=== PATIENT | male | born 1985 | race Hispanic/Latino ===

== ENCOUNTER → 2017-08-26 | Day surgery (SDC) | payer SELFPAY ==
[~2017-08-26] MED LIST: Bupivacaine 0.25% HCL 30 ML VIAL ONE; Dexamethasone 20 MG/5 ML VIAL ONE; Fentanyl 100 MCG/2 ML VIAL ONE; Glycopyrrolate 0.2 MG/ML 5 ML SYRINGE ONE; HYDROcodone/Acetaminophen 5/325 mg Tablet ONE; ISOVUE-370 76%-LOCM 1 ML ONE; Iopamidol 370 76% 50 ML VIAL FS ONE; Ketorolac Tromethamine 30 MG/ML VIAL IVP SCH; Ketorolac Tromethamine 30 MG/ML VIAL ONE; Lidocaine 1% PF 5 ML VIAL ONE; Midazolam HCl 2 mg/2 ml Vial ONE; Ondansetron HCl/PF 4 MG/2 ML Vial ONE; PHENYLEPHRINE-NS 100 MCG/ML 10 ML SYRINGE ONE; Piperacillin/Tazobactam 3.375 GM, Admixture Fee 1 EACH in Sodium Chloride 0.9% 100 ML IVPB SCH; Propofol 200 MG/20 ML VIAL ONE; Succinylcholine Chloride 20 MG/ML 10 ml SYRINGE FS ONE
[2017-08-26 08:50] LABS: #Lymphocytes 0.7 thou/uL (1.20-3.40); #Monocytes 0.8 thou/uL (0.11-0.59); #Neutrophils 15.7 thou/uL (1.40-6.50); %Basophils 0.2 % (0.0-1.0); %Eosinophils 0.1 % (0.0-10.0); %Monocytes 4.4 % (0.0-10.0); %Neutrophils 91.4 % (42.0-75.0); Hemoglobin 15.3 g/dL (14.0-18.0); Mean Corpuscular HGB CONC 33.2 g/dL (32.0-36.0); Mean Corpuscular Hemoglobin 30.4 pg (27.0-31.0); Mean Corpuscular Volume 91.5 fl (80.0-94.0); Mean Platelet Volume 8.1 fL (7.4-10.4); Platelet Count 250 thou/uL (130-400); RBC Distribution Width 13.1 % (11.5-14.5); Red Blood Cell (RBC) Count 5.04 mill/uL (4.70-6.10); White Blood Cell (WBC) Count 17.2 thou/uL (4.8-10.8)
[2017-08-26 09:05] LABS: ALT (SGPT) 93 U/L (8-55); AST (SGOT) 28 U/L (5-34); Albumin 4.2 g/dL (3.5-5.0); Alkaline Phosphatase 102 U/L (40-150); Anion Gap 12 mmol/L (10-20); BUN (Urea Nitrogen) 9 mg/dL (8.9-20.6); Bilirubin, Total 0.6 mg/dL (0.2-1.2); Calc. Creatinine Clearance 0 mL/min (70-130); Calcium 9.2 mg/dL (7.8-10.44); Carbon Dioxide 24 mmol/L (22-29); Chloride 102 mmol/L (98-107); Estimated GFR-MDRD Greater than 90; Globulin 3.6 g/dL (2.4-3.5); Glucose 138 mg/dL (70-105); Lipase 9 U/L (8-78); Potassium 4.4 mmol/L (3.5-5.1); Protein, Total 7.8 g/dL (6.0-8.3); Sodium 134 mmol/L (136-145)
[2017-08-26 10:52] LABS: Bilirubin Negative (Negative); Blood, Urine Negative (Negative); Clarity CLEAR (Clear); Glucose, Urine (Dipstick) Negative (Negative); Leukocyte Negative (Negative); Nitrite Negative (Negative); Protein, Urine (Dipstick) Negative (Neg-Trace); Specific Gravity, Urine 1.017 (1.002-1.036); Urobilinogen 0.2 mg/dL (0.2-1.0)
--- NOTE | 2017-08-26 11:28 | CT ---
CT ABDOMEN AND PELVIS WITH ORAL AND IV CONTRAST: HISTORY: A 32-year-old male with right lower quadrant abdominal pain and vomiting. FINDINGS: There are mild dependent changes of the lung bases. There is a 4 mm nodule in the right middle lobe. The liver, spleen, pancreas, adrenal glands, and kidneys are normal. No calcified gallstones are s een. No free air, free fluid, or lymphadenopathy is seen. The small bowel loops are not abnormally dilated. The appendix is fluid-filled and dilated with periappendiceal inflammatory changes. A smal l fat-containing left inguinal hernia is present. No acute osseous abnormalities are seen. IMPRESSION: Acute appendicitis. Findings were discussed over the telephone with Suzi Fajardo, nurse practitioner, at 11:00 a.m. HUGO SALCEDO POS: BRIGIDO
--- NOTE | 2017-08-26 11:54 | HP ---
DATE OF ADMISSION: 08/26/2017 HISTORY OF PRESENT ILLNESS: A 32-year-old man presented to emergency department with insidi ous onset periumbilical abdominal pain, which has since settled in the right lower quadrant. The pat ient states the pain started approximately 0200 hours, associated with one bout of nonbilious emesis. He denies any fevers, chills or diarrhea. PAST MEDICAL HISTORY: Denies any previous medical problems. PAST SURGICAL HISTORY: The patient denies any previous surgeries. 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 He admits t o smoking approximately 2 cigarettes a day. He has smoked for about 5 years. He admits to occasiona l intake of ethanol in moderate amounts. He denies any illicit drug abuse. FAMILY HISTORY: Notable for grandmother with diabetes mellitus and heart disease. He denies any fam [place] history of essential hypertension or cancer. CURRENT MEDICATIONS: None. ALLERGIES: Patient denies any known drug allergies. REVIEW OF SYSTEMS: Ten point review of systems essentially unremarkable except for as stated in past medical history and chief complaint. PHYSICAL EXAMINATION: GENERAL: This reveals a 32-year-old normally developed man who is otherwise coherent and interactive and appears stated age. The patient is alert and oriented x3. He appears to be in no acute distres s at the time of my evaluation. VITAL SIGNS: Today includes blood pressure 138/79, pulse 94, respiratory rate 20, temperature is 97. 9 degrees Fahrenheit. Oxygen saturation is 97% on room air. HEENT: Reveals normocephalic and atraumatic. Pupils are equal, round, and reactive to light and acc ommodation. Extraocular muscles are intact bilaterally. No sclerae icterus is present. Oral mucosa is pink and moist. No lesions are noted. NECK: Supple. No palpable lymphadenopathy or thyromegaly present. CARDIOVASCULAR: Reveals regular rate and rhythm, no murmurs or gallops auscultated. LUNGS: Clear to auscultation bilaterally. His breathing is regular and unlabored. ABDOMEN: Soft and nondistended. He has right lower quadrant tenderness at McBurney's. He has a positive Rovsing sign. Liver and spleen are otherwise nonpalpable below costal margins. EXTREMITIES: Reveals 2+ radial and pedal pulses bilaterally. No ankle edema is present. NEUROLOGIC: Reveals no focal deficits present. I have reviewed the CT scan of the abdomen and pelvis which was obtained today with an enlarged thick walled appendix with periappendiceal fat stranding. A non-incarcerated left inguinal hernia is also noted. PERTINENT LABORATORY FINDINGS: Today includes a CBC with 17,200 white blood cells, hemoglobin is 15. 3, hematocrit is 46.1, platelet count is 250,000. Metabolic profile: Sodium 134, potassium 4.4, chl oride is 102, bicarbonate 24, BUN 9, creatinine 0.89, glucose 138. Total bilirubin 0.6, AST and ALT noted at 28 and 93 respectively. Serum lipase is normal at 9. IMPRESSION: Acute appendicitis. PLAN: Laparoscopic appendectomy. I have advised the patient of the above findings and plan. I have also informed him of the risks and benefits of the proposed surgery. The risks include, but not limited to bleeding, infection, injury to bowel or surrounding structures. The patient indicated understanding of information given. I have answered his questions. I did cond uct the history taken using a relief operator. The patient has granted consent for this admissio n and surgical intervention.
--- NOTE | 2017-08-26 14:26 | OP ---
DATE OF OPERATION: 08/26/2017 PREOPERATIVE DIAGNOSIS: Acute appendicitis. POSTOPERATIVE DIAGNOSIS: Acute appendicitis. PROCEDURES PERFORMED: Laparoscopic appendectomy. SURGEON: Reza Escobedo D.O. ANESTHESIA: General endotracheal. ESTIMATED BLOOD LOSS: Less than 5 mL. SPONGE AND INSTRUMENT COUNT: Certified as correct x2. COMPLICATIONS: None apparent. INDICATIONS FOR PROCEDURE: A 32-year-old man presented with insidious onset periumbilical a bdominal pain, which since settled in the right lower quadrant. Clinical and radiographic examination was consistent with acute appendicitis for which patient was br ought to the operating room for laparoscopic appendectomy. Findings are consistent with a suppurative appendix in a retrocecal position. No evidence of perfora tion. DESCRIPTION OF PROCEDURE: Informed consent obtained from the patient who was brought to the operatin g room and placed in supine position. Following general anesthesia, a De La Cruz catheter was inserted and placed a bedside drain. The abdomen was sterilely prepped and draped in the usual fashion. Skin below the umbilicus was infiltrated with 0.25% Marcaine with epinephrine. A small curvilinear infraumbilical incision was made using an 11 scalpel. Umbilical stalk was grasped with Marc and elevated. A Veress needle was then inserted through this incision and placed in the peritoneal cavity through w hich the abdomen was insufflated with 3 liters of CO2 gas. Intraabdominal pressure noted at 2 mmHg. Following abdominal insufflation, Veress needle was removed and a 5 mm trocar was introduced using a Visiport under laparoscopy. Laparoscopy confirmed proper placement of the port, no injuries to underlying structures. Additional laparoscopy reveals omental adhesions in the right lower quadrant. Under direct laparoscopy, a 5 mm suprapubic and 12 mm left lower quadrant ports were placed after the overlying skin was infiltrated with 0.25% Marcaine with epinephrine and appropriate incision was mad e. The patient was placed in a Trendelenburg position, rotated to his left. I introduced a Prestige grasper through the left lower quadrant port site using this to bluntly take down omental adhesions to reveal a suppurative retrocecal appendix. I then introduced an Endo [place] forcep through the suprapubic port site grasping the appendix, whic h was elevated. I used a [place] dissector to create a rent through the mesoappendix at the base. Using an Endo-BILL with a blue load, appendix was divided at appendicocecal junction. Using a white load of the Endo-BILL, the mesoappendix was also divided at the base. The appendix was passed off the operative field for one transmission to pathology. This was delivered of the abdominal cavity using an EndoCatch. Operative site was inspected for good hemostasis. FINDINGS: No other pathology, laparoscopy was terminated. Fascia of the left lower quadrant port was closed using 0 Vicryl suture and Endo closure device under laparoscopy. Abdomen was desufflated. All ports and instruments removed and accounted for. Skin incisions were closed using 4-0 Monocryl suture in subcuticular fashion. Dermabond was then applied. The patient tolerated the operation without any apparent complication and was returned to the recover y room in satisfactory condition.
== END ==
LOC: ERS 08:11 → SDC 11:48 → ERS 14:00
PROVIDERS: ATTEND Surgery
PROC: 0DTJ4ZZ Resection of Appendix, Percutaneous Endoscopic Approach (ICD-10-PCS; principal; 2017-08-26)
DX: K35.80 Unspecified acute appendicitis (principal); F17.210 Nicotine dependence, cigarettes, uncomplicated
CPT/HCPCS: 36415; 74177; 80053; 81003; 83690; 85025; 88304; 96361; 96374; J1100; J1885; J2001; J2250; J2405; J2543; J2704; J3010; J7050; S0020